=== PATIENT | female | born 1990 | race Hispanic/Latino ===

== ENCOUNTER 2016-03-05 22:36 | Emergency (ER) | payer OTHER, SELFPAY ==
--- NOTE | 2016-03-05 23:28 | ERRECORD ---
[facility] EMERGENCY RECORD HPI FALL (22:50 WMEI) CHIEF COMPLAINT: Patient presents for evaluation of fall, from standing, landing on left side. HISTORIAN: History provided by patient, tripped walking fell on l side of abdomen some soreness on movement but walking without difficulty.concernrd about baby 20 wks . LOCATION: Symptoms are localized. QUALITY: Pain is sharp in nature. TIME COURSE: Sudden onset of symptoms. ASSOCIATED WITH: No associated back pain, No associated contusion(s), No associated laceration(s). EXACERBATED BY: Patient's condition exacerbated by twisting. RELIEVED BY: Patient's condition relieved by rest. ROS (22:52 WMEI) CONSTITUTIONAL: Negative constitutional review of systems, Historian denies chills, denies fever. EYES: Historian denies eye pain, denies eye discharge. ENT: Historian denies otorrhea, denies sore throat. CARDIOVASCULAR: Historian denies chest pain, denies diaphoresis. RESPIRATORY: Historian denies cough, denies shortness of breath. GI: Historian denies abdominal pain, denies nausea, denies vomiting. GENITOURINARY FEMALE: Historian denies frequency, denies urgency. MUSCULOSKELETAL: Historian denies back pain, denies joint redness. SKIN: Historian denies skin changes, denies skin lesions. NEUROLOGIC: Historian denies gait changes, denies headache, denies mental status changes. PSYCHIATRIC: Historian denies alcohol abuse, denies drug abuse. PAST MEDICAL HISTORY (22:54 PGRI) MEDICAL HISTORY: No past medical history, Flu vaccine up to date, Tetanus immunization up to date, Pneumococcal vaccine not up to date. FEMALE SURGICAL HISTORY: Patient has no surgical history,. PSYCHIATRIC HISTORY: No previous psychiatric history. SOCIAL HISTORY: Patient denies alcohol use, Patient denies drug use, Patient has no smoking history. KNOWN ALLERGIES No Known Allergies (Unconfirmed) No Known Drug Allergies (Unconfirmed) CURRENT MEDICATIONS No recorded medications VITAL SIGNS (22:45 MVIL) VITAL SIGNS: BP: 117/83, Pulse: 87, Resp: 20, Temp: 98.2 (Oral), &a-1R&a+25V*p+0X*u7326O*c202B*c15G*c2P*p-0X&a-25V&a+1R Name: Erica Ricardo : 1990 F26 MedRec: [id number] AcctNum: [id number] Prepared: Sat Mar 06, 2016 08:00 by Interface Page 1 of 2 pMD [facility] EMERGENCY RECORD O2 sat: 99 on Room Air, Time: 03/05/2016 22:45. PHYSICAL EXAM (22:54 WMEI) HEAD: Head exam normal, Head exam included findings of head atraumatic. EYES: Extraocular muscles intact, Conjunctiva normal, Sclera normal. ENT: Nose exam normal, Pharynx exam normal. NECK: Neck exam included findings of normal range of motion, Trachea midline. RESPIRATORY CHEST: Breath sounds clear, Chest exam included findings of chest movement symmetrical. CARDIOVASCULAR: Cardiovascular exam included findings of heart rate regular rate and rhythm, Pedal pulses normal. ABDOMEN FEMALE: Abdominal exam included findings of abdomen nontender, no distension, gravid stretch galaviz uterus to umbilicus no contusion or abrasion. UPPER EXTREMITY: Upper extremity exam included findings of inspection normal, range of motion normal. LOWER EXTREMITY: Left thigh exam normal, Right thigh exam normal, Left lower leg exam normal, Right lower leg exam normal. NEURO: Neuro exam findings include patient oriented to person, place and time, Don coma scale 15, Speech normal, Gait normal. SKIN: Skin exam included findings of skin warm, dry, and normal in color. LYMPHATIC: Lymphatic exam normal. PSYCHIATRIC: Psychiatric exam included findings of patient oriented to person place and time, Normal affect, Judgment normal, Insight normal. PROBLEM LIST No recorded problems DIAGNOSIS (22:57 WMEI) FINAL: PRIMARY: fall, ADDITIONAL: . PRESCRIPTION No recorded prescriptions DISPOSITION PATIENT: Disposition Type: Discharge, Disposition: *Discharge Home. (22:57 WMEI) Patient left the department. (23:03 PGRI) Kamara: MVIL=MAGDALENE Akers, Ashanti PGRI=MAGDALENE Myrick, Ester WMEI=DO Moran William &a-1R&a+25V*p+0X*v2033Q*c202B*c15G*c2P*p-0X&a-25V&a+1R Name: Erica Ricardo : 1990 F26 MedRec: [id number] AcctNum: [id number] Prepared: Sat Mar 06, 2016 08:00 by Interface Page 2 of 2 pMD MTDD
--- NOTE | 2016-03-05 23:30 | PICIS ---
[facility] EMERGENCY RECORD TRIAGE (TueMar 05, 2016 22:48 MVIL) TRIAGE NOTES: S/P FALL. PATIENT IS 5MONTHS . (TueMar 05, 2016 22:48 MVIL) PATIENT: NAME: Erica Ricardo, AGE: 26, GENDER: female, : Tue1990, TIME OF GREET: TueMar 05, 2016 22:37, PREFERRED LANGUAGE: Salvadorean, ETHNICITY: or , ECODE BILLING MAP: [facility], Zip Code: [address], KG WEIGHT: 83.46, HEIGHT/LENGTH: 160.02cm, BMI: 32.59, , , PERSON ID: [id number], PAYMENT: [employer] Self Pay, PCP: Francesca STOLL ROLAND. (TueMar 05, 2016 22:48 MVIL) PHONE: . (22:51) COMPLAINT: S/P FALL. (TueMar 05, 2016 22:48 MVIL) ADMISSION: URGENCY: 4 Non Urgent, ADMISSION SOURCE: Home, TRANSPORT: CAR, BED: ER -02. (TueMar 05, 2016 22:48 MVIL) TRIAGE SCREENING: Patient denies suicidal ideation, Patient denies presence of domestic violence. (22:54 PGRI) PROVIDERS: TRIAGE NURSE: Ashanti Akers RN. (TueMar 05, 2016 22:48 MVIL) VITAL SIGNS: BP 117/83, Pulse 87, Resp 20, Temp 98.2, (Oral), O2 Sat 99, on Room Air, Time 03/05/2016 22:45. (22:45 MVIL) PREVIOUS VISIT ALLERGIES: No Known Drug Allergies. (TueMar 05, 2016 22:48 MVIL) No Known Drug Allergies. (22:54 PGRI) KNOWN ALLERGIES No Known Allergies (Unconfirmed) No Known Drug Allergies (Unconfirmed) CURRENT MEDICATIONS No recorded medications VITAL SIGNS (22:45 MVIL) VITAL SIGNS: BP: 117/83, Pulse: 87, Resp: 20, Temp: 98.2 (Oral), O2 sat: 99 on Room Air, Time: 03/05/2016 22:45. NURSING ASSESSMENT: ABDOMEN (22:54 PGRI) CONSTITUTIONAL: Patient arrives ambulatory, Gait steady, History obtained from patient, Patient appears comfortable, Patient cooperative, Patient alert, Oriented to person, place and time, Skin warm, Skin dry, Skin normal in color, Mucous membranes pink, Mucous membranes moist, Patient complains of fall, pt states she tripped over a branch in the dark and landed on her left side. denies loc. states she is 5 months . currently c/o pain to left side with movement. PAIN: aching pain, left side of abd, Onset of pain 03/05/2016 22:30, on a scale 0-10 patient rates pain as 5, Pain exacerbated by, movement, Nothing has been tried to alleviate the pain. ABDOMEN: Abdomen assessment findings include abdomen symmetrical, Abdomen soft, tender, left side of abd, Bowel &a-1R&a+25V*p+0X*l8320P*c202B*c15G*c2P*p-0X&a-25V&a+1R Name: Erica Ricardo : 1990 F26 MedRec: [id number] AcctNum: [id number] Prepared: Sat Mar 06, 2016 08:06 by Interface Page 1 of 4 pMD [facility] EMERGENCY RECORD sound normal, no associated nausea, no associated vomiting, no associated diarrhea, no associated constipation, no associated weight change, no associated appetite change, no associated foreign travel. LMP: Patient confirms . GENITOURINARY FEMALE: Female genitourinary assessment findings include external genitalia normal, no associated urinary complaints, no associated vaginal discharge, no associated vaginal bleeding, no associated vaginal foreign body, no associated complaints of painful intercourse. SAFETY: Side rails up, Cart/Stretcher in lowest position, Family at bedside, Call light within reach, Hospital ID band on. NURSING PROCEDURE: DISCHARGE NOTE (23:02 PGRI) DISCHARGE: Patient discharged to home, ambulating without assistance, family driving, accompanied by other family member, Summary of Care printed/ provided, Patient requested and was provided an electronic copy of Discharge Instructions, Transition record given to patient, Discharge instructions given to patient, Patient treated and evaluated by physician. BELONGINGS: Belongings and valuables with patient upon arrival to the Emergency Department include:, Belongings and valuables with patient at time of discharge include:, Belongings remain with patient, Valuables remain with patient. SAFETY: Side rails up, Cart/Stretcher in lowest position, Family at bedside, Call light within reach, Hospital ID band on. NURSING PROCEDURE: HEART TONES (22:55 PGRI) PATIENT IDENTIFIER: Patient actively involved in identification process, Patient's identity verified by patient stating name, Patient's identity verified by patient stating date. HEART TONES: heart toned obtained with doppler, by magdalene carney, heart rate 147. FOLLOW-UP: After procedure, results given to Dr. hale. SAFETY: Side rails up, Cart/Stretcher in lowest position, Family at bedside, Call light within reach, Hospital ID band on. HPI FALL (22:50 WMEI) CHIEF COMPLAINT: Patient presents for evaluation of fall, from standing, landing on left side. HISTORIAN: History provided by patient, tripped walking fell on l side of abdomen some soreness on movement but walking without difficulty.concernrd about baby 20 wks . LOCATION: Symptoms are localized. QUALITY: Pain is sharp in nature. TIME COURSE: Sudden onset of symptoms. ASSOCIATED WITH: No associated back pain, No associated contusion(s), No associated laceration(s). EXACERBATED BY: Patient's condition exacerbated by twisting. RELIEVED BY: Patient's condition relieved by rest. &a-1R&a+25V*p+0X*m9530W*c202B*c15G*c2P*p-0X&a-25V&a+1R Name: Erica Ricardo : 1990 F26 MedRec: [id number] AcctNum: [id number] Prepared: Sat Mar 06, 2016 08:06 by Interface Page 2 of 4 pMD [facility] EMERGENCY RECORD ROS (22:52 WMEI) CONSTITUTIONAL: Negative constitutional review of systems, Historian denies chills, denies fever. EYES: Historian denies eye pain, denies eye discharge. ENT: Historian denies otorrhea, denies sore throat. CARDIOVASCULAR: Historian denies chest pain, denies diaphoresis. RESPIRATORY: Historian denies cough, denies shortness of breath. GI: Historian denies abdominal pain, denies nausea, denies vomiting. GENITOURINARY FEMALE: Historian denies frequency, denies urgency. MUSCULOSKELETAL: Historian denies back pain, denies joint redness. SKIN: Historian denies skin changes, denies skin lesions. NEUROLOGIC: Historian denies gait changes, denies headache, denies mental status changes. PSYCHIATRIC: Historian denies alcohol abuse, denies drug abuse. PAST MEDICAL HISTORY (22:54 PGRI) MEDICAL HISTORY: No past medical history, Flu vaccine up to date, Tetanus immunization up to date, Pneumococcal vaccine not up to date. FEMALE SURGICAL HISTORY: Patient has no surgical history,. PSYCHIATRIC HISTORY: No previous psychiatric history. SOCIAL HISTORY: Patient denies alcohol use, Patient denies drug use, Patient has no smoking history. PHYSICAL EXAM (22:54 WMEI) HEAD: Head exam normal, Head exam included findings of head atraumatic. EYES: Extraocular muscles intact, Conjunctiva normal, Sclera normal. ENT: Nose exam normal, Pharynx exam normal. NECK: Neck exam included findings of normal range of motion, Trachea midline. RESPIRATORY CHEST: Breath sounds clear, Chest exam included findings of chest movement symmetrical. CARDIOVASCULAR: Cardiovascular exam included findings of heart rate regular rate and rhythm, Pedal pulses normal. ABDOMEN FEMALE: Abdominal exam included findings of abdomen nontender, no distension, gravid stretch galaviz uterus to umbilicus no contusion or abrasion. UPPER EXTREMITY: Upper extremity exam included findings of inspection normal, range of motion normal. LOWER EXTREMITY: Left thigh exam normal, Right thigh exam normal, Left lower leg exam normal, Right lower leg exam normal. NEURO: Neuro exam findings include patient oriented to person, place and time, [place] coma scale 15, Speech normal, Gait normal. SKIN: Skin exam included findings of skin warm, dry, and normal in color. &a-1R&a+25V*p+0X*d5963M*c202B*c15G*c2P*p-0X&a-25V&a+1R Name: Erica Ricardo : 1990 F26 MedRec: [id number] AcctNum: [id number] Prepared: Sat Mar 06, 2016 08:06 by Interface Page 3 of 4 pMD [facility] EMERGENCY RECORD LYMPHATIC: Lymphatic exam normal. PSYCHIATRIC: Psychiatric exam included findings of patient oriented to person place and time, Normal affect, Judgment normal, Insight normal. EVENTS TRANSFER: Triage to Emergency Emergency Room -02. (TueMar 05, 2016 22:48 MVIL) Removed from Emergency Emergency Room -02. (23:03 PGRI) PROBLEM LIST No recorded problems DIAGNOSIS (22:57 WMEI) FINAL: PRIMARY: fall, ADDITIONAL: . DISPOSITION PATIENT: Disposition Type: Discharge, Disposition: *Discharge Home. (22:57 WMEI) Patient left the department. (23:03 PGRI) INSTRUCTION (22:57 WMEI) DISCHARGE: , ESTABLISHED, NORMAL SYMPTOMS. FOLLOWUP: Francesca STOLL, [facility], [address] [place] [address], ([employer])[facility] [id number], . SPECIAL: Follow-up with your primary physician as needed. PRESCRIPTION No recorded prescriptions IMAGING (23:02 PGRI) *SUPPLY CHARGE SHEET: Image captured from scanner. *DISCHARGE INSTRUCTIONS RECEIPT: Image captured from scanner. ADMIN (Sat Mar 06, 2016 07:58 WMEI) DIGITAL SIGNATURE: DO Hale William. Kamara: MVIL=MAGDALENE Akers, Ashanti PGRI=MAGDALENE Myrick, Ester WMEI=DO Hale William &a-1R&a+25V*p+0X*o9278G*c202B*c15G*c2P*p-0X&a-25V&a+1R Name: Erica Ricardo : 1990 F26 MedRec: [id number] AcctNum: [id number] Prepared: [facility] [[email or web address]] Mar 06, 2016 08:06 by Interface Page 4 of 4 pMD MTDD
== END 2016-03-05 23:07 | disposition home or self-care (01) ==
LOC: BURERS 22:36
DX: O9A.212 Injury, poisoning and certain other consequences of external causes complicating pregnancy, second trimester (principal); S39.91XA Unspecified injury of abdomen, initial encounter; Z3A.20 20 weeks gestation of pregnancy; W19.XXXA Unspecified fall, initial encounter
CPT/HCPCS: 99283

== ENCOUNTER 2017-03-08 12:30 | Emergency (ER) | payer OTHER, SELFPAY ==
[2017-03-08 13:08] LABS: Bilirubin Negative (Negative); Blood, Urine Large (Negative); Clarity Cloudy (Clear); Glucose, Urine (Dipstick) Negative (Negative); Leukocyte Negative (Negative); Nitrite Negative (Negative); Pregnancy Test - Urine (BHCG) Negative (Negative); Pregu Control Background? CLEAR/WHITE (CLR/WHITE); Pregu Control Bar Appear? YES (CONTROL BAR); Protein, Urine (Dipstick) 100 mg/dL (Neg-Trace); Specific Gravity 1.025 (1.002-1.036); Specific Gravity, Urine 1.025 (1.005-1.030); Urobilinogen 0.2 mg/dL (0.2-1.0)
[2017-03-08 13:11] LABS: Bacteria/HPF 3+ HPF (None Seen); RBC/HPF 0-3 HPF (0-3); WBC/HPF 0-3 HPF (0-3)
[2017-03-08 13:12] LABS: Other Casts/LPF 0-3 FINELY GRAN LPF (0-3 Hyaline)
== END 2017-03-08 13:19 | disposition home or self-care (01) ==
LOC: BURERS 12:30
DX: J06.9 Acute upper respiratory infection, unspecified (principal)
CPT/HCPCS: 81003; 81015; 81025; 93005

== ENCOUNTER 2021-10-27 13:00 | Emergency (ER) | payer OTHER, SELFPAY | END 2021-10-27 13:30 | disposition home or self-care (01) | LOC: BURERS 13:00 | DX: J06.9 Acute upper respiratory infection, unspecified (principal); Z20.822 Contact with and (suspected) exposure to COVID-19 | CPT/HCPCS: 99283; U0003; U0005 ==